=== PATIENT | female | born 1990 | race Caucasian/White ===

== ENCOUNTER 2016-12-07 17:21 | Outpatient (CLI) | payer MEDICAID ==
[~2016-12-07] VITALS: Ht 160 cm; Wt 86.5 kg
[~2016-12-07 17:21] MED LIST: ACET500C5 PO
[2016-12-07 17:54] VITALS: Ht 160 cm; Wt 86.5 kg
[2016-12-07 17:55] VITALS: BP 112/68; PULSE 77; RESP 18
[2016-12-07 19:17] LABS: ADD UMIC YES; UR ASCORBIC ACID NEGATIVE (NEGATIVE); UR BACTERIA FEW /HPF (NONE SEEN); UR BILIRUBIN (Dip) NEGATIVE (NEGATIVE); UR BLOOD (Dip) 3+ mg/dL (NEGATIVE); UR CLARITY CLEAR (CLEAR); UR COLOR RED (YELLOW); UR GLUCOSE (Dip) 1+ mg/dL (NEGATIVE); UR KETONES (Dip) NEGATIVE (NEGATIVE); UR LEUKOCYTE ESTERASE (Dip) TRACE Leu/ul (NEGATIVE); UR NITRITE (Dip) NEGATIVE (NEGATIVE); UR RBC 58 /HPF (0-5); UR SPECIFIC GRAVITY (Dip) 1.014 (1.003-1.030); UR SQUAMOUS EPITHELIAL CELL FEW /HPF (FEW); UR TOTAL PROTEIN (Dip) 2+ mg/dl (NEGATIVE); UR UROBILINOGEN (Dip) NEGATIVE (NEGATIVE)
--- NOTE | 2016-12-07 19:28 | RADRPT ---
AMENDMENT: 12/07/2016 7:28:36 PM Matt Quiroz Md The IMPRESSION should also state: Breech presentation. PROCEDURE: US OB biophysical profile. CLINICAL INDICATION: evaluation, contractions TECHNIQUE: Multiple sonographic images of the pelvis were obtained. The images were reviewed on a PACS workstation. COMPARISON: No prior studies are available for comparison. FINDINGS: The cervix is closed and measures 3.9 cm in length. There is a single viable intrauterine gestation. Cardiac activity is present with 132 beats per min toribio. There is a breech presentation. The placenta is fundal and left lateral in location. There is no evidence of placental abruption. There is a low amount of amniotic fluid with an BJ = 7.4 cm. Biophysical profile: movement 2/2 tone 2/2. breathing 2/2 BJ 2/2 Total 09/20 RPTAT: AA . IMPRESSION: Normal biophysical profile. Low BJ of 7.4 cm. The cervix is closed and measures 3.9 cm in length. Physician Eduardo Date Time Electronically viewed and signed by Physician Eduardo on 12/07/2016 19:28 /
--- NOTE | 2016-12-07 22:15 | TRIAGE ---
OB Triage Datetime Report Generated by CPN: 12/07/2016 22:15 Datetime: 12/07/2016 21:25 Stage of : OB Triage Datetime: 12/07/2016 21:01 Stage of : OB Triage Monitor Mode: External Duration (sec)2399: 10sec Quality: Mild Pattern: Normal: <= 5 Contractions in 10 Minutes Resting Tone [place]: Relaxed Heart Rate FHR Baseline Rate: 130 Monitor Mode: External US FHR Baseline Changes: No Baseline Change Variability: Moderate 6-25 bpm Accelerations: 15X15 Decelerations: None Category: Category I Datetime: 12/07/2016 20:01 Stage of : OB Triage Monitor Mode: External Resting Tone [place]: Relaxed Heart Rate FHR Baseline Rate: 140 Monitor Mode: External US Pain Assessment Pain Scale: 0 Pain Presence: None/Denies Pain Type: N/A Datetime: 12/07/2016 19:00 Stage of : OB Triage Maternal Assessment Level of Consciousness: Fully Conscious Labor Evaluation Frequency: 125 Monitor Mode: External Resting Tone [place]: Relaxed Heart Rate FHR Baseline Rate: 135 Monitor Mode: External US Variability: Moderate 6-25 bpm Accelerations: 15X15 Decelerations: None Category: Category I Pain Assessment Pain Scale: 0 Pain Goal: 3 Vaginal Exam Membrane Status: Intact Vaginal Bleeding: None Datetime: 12/07/2016 17:52 Assessment Type: Triage Maternal Assessment Level of Consciousness: Fully Conscious DTR's/Clonus: DTRs 2+; No Clonus Headache: Denies Blurred Vision: No Respiratory Effort: Unlabored; Regular Rhythm; Equal Expansion Breath Sounds, Left: Clear and Equal Breath Sounds, Right: Clear and Equal Nausea/Vomiting: Denies RUQ Epigastric Pain: Denies Lower Extremities Edema: Bilateral Lower Extremities Degree: 1+ Upper Extremities Edema: None Degree: None Facial Edema: None Fall Risk Assessment History of Falling: (0) No Secondary Diagnosis: (0) No Ambulatory Aid: (0) Bedrest/Nurse Assist IV Therapy: (0) No Gait: (0) Normal/Bedrest/Immobile Mental Status: (0) Oriented to Own Ability Fall Score: 0 Fall Risk Score Definition: No Risk: No action required Datetime: 12/07/2016 17:51 Time of Arrival: 12/07/2016 17:09 EGA: 34.2 Arrived By: Ambulatory Arrived From: Home Chief Complaint: PT HERE C/O UC'S Movement: Present Contractions: Irregular Rupture of Membranes: Denies Vaginal Bleeding: None Vaginal Discharge: Denies Recent Sexual Intercouse: Denies Abdominal Trauma: Not Applicable Patient Complaints: Contractions; Cramping Time Provider Notified: 12/07/2016 18:20 Provider Notified: SANIA Initial Plan: BPP/NST/CVL/UA Datetime: 12/07/2016 17:49 Monitor Mode: External Monitor Mode: External US
--- NOTE | 2016-12-07 23:13 | PN ---
Triage Information Date/Time 12/07/2016 Reason for visit: Weeks of Gestation 34 weeks and 2 days /Para Diabetes: none Hypertention: none Additional information 26 years old with IUP at 34 weeks and 2 days with complaint of lower back pain when moves to her sides. Denies any LOF, vaginal bleeding or decreased movement. Denies any contractions. Had some random contractions this morning that resolved. Reports was told during her office visits that has blood in her urine,. Denies any known history of kidney stone. Denies any similar pain in the past/ Objective Vital Signs Date Time Temp Pulse Resp B/P Pulse Ox O2 Delivery O2 Flow Rate FiO2 12/07/16 17:55 98.5 77 18 112/68 99 Room Air Heart Rate: 130's Contractions: None Exam GA : A*O, NAD abdomen: soft, Gravid. non tender Fundal Height consistent with GA No CVA tenderness Extremities: No calf tenderness, no click , no edema NST: Cat 1 No contractions on the monitor noted Results/Medications Results 24 hrs Laboratory Tests Test 12/07/16 17:30 Urine Color RED Urine Clarity CLEAR Urine pH 7.0 Urine Specific [place] 1.014 Urine Ketones NEGATIVE Urine Nitrite NEGATIVE Urine Bilirubin NEGATIVE Urine Urobilinogen NEGATIVE Urine Leukocyte Esterase TRACE A Urine Microscopic RBC 58 H Urine Microscopic WBC 1 Urine Squamous Epithelial Cells FEW Urine Bacteria FEW A Urine Hemoglobin 3+ H Urine Glucose 1+ H Urine Total Protein 2+ H Imaging Results Breech presentation. PROCEDURE: US OB biophysical profile. CLINICAL INDICATION: evaluation, contractions TECHNIQUE: Multiple sonographic images of the pelvis were obtained. The images were reviewed on a PACS workstation. COMPARISON: No prior studies are available for comparison. FINDINGS: The cervix is closed and measures 3.9 cm in length. There is a single viable intrauterine gestation. Cardiac activity is present with 132 beats per minute. There is a breech presentation. The placenta is fundal and left lateral in location. There is no evidence of placental abruption. There is a low amount of amniotic fluid with an BJ = 7.4 cm. Biophysical profile: movement 2/2 tone 2/2. breathing 2/2 BJ 2/2 Total 8/8 RPTAT: AA . IMPRESSION: Normal biophysical profile. Low BJ of 7.4 cm. The cervix is closed and measures 3.9 cm in nabil Disposition: Discharge Assessment/Plan IUP at 34 weeks and 2 days Low back pain, likely musculoskeleta Microcopic Hematuria, can not r/o nephrolithiasis No evidence of labor BJ borderline RTC tomorrow after adequate hydration for repeat ultrasound for BJ as well as renal ultrasound labor precaution and kick counts discussed ALEXEI LUTHER MD Dec 07, 2016 23:13
[2016-12-08] MEDS ORDERED: [UNRECOGNIZED DRUG - CODE] PO (19:42)
[2016-12-08] MEDS ORDERED: FERR325T5 PO (19:42)
== END 2016-12-07 21:49 | disposition home or self-care (01) ==
LOC: OBT 17:21 → L-D 17:22 → OBT 21:49
PROVIDERS: ATTEND Obstetrics & Gynecology
DX: O26.893 Other specified pregnancy related conditions, third trimester (principal); Z3A.34 34 weeks gestation of pregnancy; M54.5 Low back pain; R31.29 Other microscopic hematuria
CPT/HCPCS: 76817; 76818; 81001; Z7500; G0463

== ENCOUNTER 2016-12-08 19:26 | Outpatient (CLI) | payer MEDICAID ==
[~2016-12-08] VITALS: Ht 160 cm; Wt 86.7 kg
[2016-12-08 19:34] VITALS: BP 116/72; PULSE 86; RESP 18; Ht 160 cm; Wt 86.7 kg
[2016-12-08] MEDS ORDERED: [UNRECOGNIZED DRUG - CODE] PO (19:42)
[2016-12-08] MEDS ORDERED: FERR325T5 PO (19:42)
--- NOTE | 2016-12-08 20:17 | RADRPT ---
PROCEDURE: Obstetrical ultrasound for biophysical profile CLINICAL INDICATION: Biophysical profile. . TECHNIQUE: Obstetrical ultrasound of the uterus for biophysical profile. Transabdominal views are obtained. COMPARISON: 12/07/2016 FINDINGS: Single intrauterine gestation. Presentation: Breech Placenta: Fundal No evidence of placental abruption. No evidence of placenta previa. breathing movement = 2/2 tone = 2/2 motion = 2/2 BJ = 2/2 BJ = 9.2 cm heart rate: 152 beats per minute IMPRESSION: Single intrauterine gestation. Biophysical profile 09/20 BJ = 9.2 cm Presentation: Breech RPTAT: AADD .Gene Dunaway MD, MD Date Time Electronically viewed and signed by .Gene Dunaway MD, MD on 12/08/2016 20:16 .B/
--- NOTE | 2016-12-08 22:01 | TRIAGE ---
OB Triage Datetime Report Generated by CPN: 12/08/2016 22:00 Datetime: 12/08/2016 20:50 Stage of : OB Triage Frequency: X1 Monitor Mode: External Duration (sec)2399: 50 Quality: Mild Pattern: Normal: <= 5 Contractions in 10 Minutes Resting Tone [place]: Relaxed FHR Baseline Rate: 140 Monitor Mode: External US Variability: Moderate 6-25 bpm Accelerations: 15X15 Decelerations: None Category: Category I Pain Scale: 0 Pain Presence: None/Denies Pain Goal: 0 Datetime: 12/08/2016 19:42 Time of Arrival: 12/08/2016 19:15 EGA: 34.3 Arrived By: Ambulatory Arrived From: Home Chief Complaint: NST/BPP PER MD ORDERS Movement: Present Contractions: Denies/Absent Rupture of Membranes: Denies Vaginal Bleeding: None Vaginal Discharge: Denies Recent Sexual Intercouse: Denies Abdominal Trauma: Not Applicable Patient Complaints: Other Time Provider Notified: 12/08/2016 19:15 Provider Notified: HERB Initial Plan: VS, EFM, NST, BPP Datetime: 12/08/2016 19:40 Stage of : OB Triage Assessment Type: Triage Level of Consciousness: Fully Conscious DTR's/Clonus: DTRs 2+; No Clonus Headache: Denies Blurred Vision: No Respiratory Effort: Unlabored; Regular Rhythm; Equal Expansion Breath Sounds, Left: Clear and Equal Breath Sounds, Right: Clear and Equal Nausea/Vomiting: Denies RUQ Epigastric Pain: Denies Lower Extremities Edema: None Degree: None Upper Extremities Edema: None Degree: None Facial Edema: None Temperature Route: Oral History of Falling: (0) No Secondary Diagnosis: (0) No Ambulatory Aid: (0) Bedrest/Nurse Assist IV Therapy: (0) No Gait: (0) Normal/Bedrest/Immobile Mental Status: (0) Oriented to Own Ability Fall Score: 0 Fall Risk Score Definition: No Risk: No action required Monitor Mode: External Contraction Comments: No contractions at this time. FHR Baseline Rate: 135 Monitor Mode: External US Variability: Moderate 6-25 bpm Accelerations: 15X15 Decelerations: None Category: Category I Pain Scale: 0 Pain Presence: None/Denies Pain Type: N/A Pain Goal: 0 Pain Relief Measures: Comfort Measures Datetime: 12/07/2016 17:52 Fall Score: 0 Fall Risk Score Definition: No Risk: No action required Datetime: 12/07/2016 17:51 EGA: 34.2
--- NOTE | 2016-12-09 01:47 | PN ---
Triage Information Date/Time 12/09/16 Reason for visit: f/u LOW BJ 12/07/16 BJ 7.4 Weeks of Gestation 34w3d /Para primigravida Diabetes: none Hypertention: none Objective Vital Signs Date Time Temp Pulse Resp B/P Pulse Ox O2 Delivery O2 Flow Rate FiO2 12/08/16 19:34 98.2 86 18 116/72 Heart Rate: 130's Contractions: None Results/Medications Imaging Results BPP 8 BJ 9.2 BREECH Disposition: Discharge Assessment/Plan IUP 34w3d borderline oligohydramnios Plan discharge home RTH 3days for repeat BJ YECENIA ESTEVEZ MD Dec 09, 2016 01:47
== END 2016-12-08 21:29 | disposition home or self-care (01) ==
LOC: OBT 19:26 → L-D 19:27 → OBT 21:29
PROVIDERS: ATTEND Obstetrics & Gynecology
DX: O41.03X0 Oligohydramnios, third trimester, not applicable or unspecified (principal); Z3A.34 34 weeks gestation of pregnancy
CPT/HCPCS: 76818; Z7500; G0463

== ENCOUNTER 2016-12-11 13:32 | Outpatient (CLI) | payer MEDICAID ==
[~2016-12-11] VITALS: Ht 162.6 cm; Wt 86.3 kg
[~2016-12-11 13:32] MED LIST changes: -ACET500C5 PO; +FERR325T5 PO; +[UNRECOGNIZED DRUG - CODE] PO
[2016-12-11 13:43] VITALS: BP 118/66; PULSE 101; RESP 18
[2016-12-11 13:44] VITALS: Ht 162.6 cm; Wt 86.3 kg
--- NOTE | 2016-12-11 15:29 | RADRPT ---
PROCEDURE: OB ultrasound for biophysical profile CLINICAL INDICATION: Oligohydramnios TECHNIQUE: Multiple sonographic images of the pelvis were obtained. Transabdominal views of the g ravid uterus are available for review. The images were reviewed on a PACS workstation. COMPARISON: Biophysical profile dated 12/08/2016 FINDINGS: breathing movement = 2/2 tone = 2/2 motion = 2/2 BJ = 2/2 BJ = 8.0 cm Single live intrauterine with cardiac activity of 148 bpm. position is breech . The placenta is fundal. IMPRESSION: 1. Single live intrauterine gestation. 2. Biophysical profile = 09/20. 3. BJ = 8.0 cm. No significant interval change. 4. Breech presentation. RPTAT: HH .Rosemary Yo MD, Date Time Electronically viewed and signed by .Rosemary Yo MD, MD on 12/11/2016 15:28 .G/
[2016-12-11] MEDS ORDERED: LACTATED RINGER'S 1,000 ML IV ONE (16:00)
--- NOTE | 2016-12-11 19:21 | RADRPT ---
PROCEDURE: US OB. CLINICAL INDICATION: Low BJ , pain TECHNIQUE: Transabdominal views of the pelvis are available for review. COMPARISON: US PELVIS 12/11/2016; US PELVIS 12/08/2016 FINDINGS: There is a single intrauterine gestation in a breech position. The heart rate is noted at 140 bpm. The placenta is fundal. The BJ measures 8.7 cm. RPTAT: AA IMPRESSION: Normal BJ. .Matt Salazar MD, MD Date Time Electronically viewed and signed by .Matt Salazar MD, MD on 12/11/2016 19:21 .S/
--- NOTE | 2016-12-11 20:37 | PN ---
Triage Information Date/Time Reason for visit: Oligohydramnios Weeks of Gestation 34+ /Para 2/1 Diabetes: none Hypertention: none Objective Vital Signs Date Time Temp Pulse Resp B/P Pulse Ox O2 Delivery O2 Flow Rate FiO2 12/11/16 13:43 98.0 101 18 118/66 97 Room Air Heart Rate: 140's Contractions: None Disposition: Discharge Assessment/Plan landon is here for repeat BJ 8.8 NSt reassuring Discharged with precautions She needs to return in 2 days for NST BPP VIANEY BUI M.D. Dec 11, 2016 20:37
--- NOTE | 2016-12-11 21:01 | TRIAGE ---
OB Triage Datetime Report Generated by CPN: 12/11/2016 21:00 Datetime: 12/11/2016 20:28 Stage of : OB Triage Datetime: 12/11/2016 19:36 Stage of : OB Triage Temperature Route: Oral Monitor Mode: External Contraction Comments: NONE Heart Rate FHR Baseline Rate: 135 Monitor Mode: External US Variability: Moderate 6-25 bpm Accelerations: 15X15 Decelerations: None Category: Category I Pain Presence: None/Denies Datetime: 12/11/2016 19:18 Stage of : OB Triage Comments: TOCO AND EFM READJUSTED AFTER US DONE. Datetime: 12/11/2016 19:00 Stage of : OB Triage Maternal Assessment Level of Consciousness: Fully Conscious Labor Evaluation Frequency: NONE Monitor Mode: External Resting Tone [place]: Relaxed Heart Rate FHR Baseline Rate: 135 Monitor Mode: External US Variability: Moderate 6-25 bpm Accelerations: 15X15 Decelerations: None Pain Assessment Pain Scale: 0 Pain Goal: 3 Vaginal Exam Membrane Status: Intact Vaginal Bleeding: None Datetime: 12/11/2016 18:00 Stage of : OB Triage Maternal Assessment Level of Consciousness: Fully Conscious Labor Evaluation Frequency: NONE Monitor Mode: External Resting Tone [place]: Relaxed Heart Rate FHR Baseline Rate: 135 Monitor Mode: External US Variability: Moderate 6-25 bpm Accelerations: 15X15 Decelerations: None Pain Assessment Pain Scale: 0 Pain Goal: 3 Vaginal Exam Membrane Status: Intact Vaginal Bleeding: None Datetime: 12/11/2016 16:51 Stage of : OB Triage Maternal Assessment Level of Consciousness: Fully Conscious Labor Evaluation Frequency: NONE Monitor Mode: External Resting Tone [place]: Relaxed Heart Rate FHR Baseline Rate: 135 Monitor Mode: External US Variability: Moderate 6-25 bpm Accelerations: 15X15 Decelerations: None Pain Assessment Pain Scale: 0 Pain Goal: 3 Vaginal Exam Membrane Status: Intact Vaginal Bleeding: None Datetime: 12/11/2016 14:30 Stage of : OB Triage Maternal Assessment Level of Consciousness: Fully Conscious Labor Evaluation Frequency: NONE Monitor Mode: External Resting Tone [place]: Relaxed Heart Rate FHR Baseline Rate: 135 Monitor Mode: External US Variability: Moderate 6-25 bpm Accelerations: 15X15 Decelerations: None Category: Category I Pain Assessment Pain Scale: 0 Pain Goal: 3 Vaginal Exam Membrane Status: Intact Vaginal Bleeding: None Datetime: 12/11/2016 13:40 Assessment Type: Triage Maternal Assessment Level of Consciousness: Fully Conscious DTR's/Clonus: DTRs 2+; No Clonus Headache: Denies Blurred Vision: No Respiratory Effort: Unlabored; Regular Rhythm; Equal Expansion Breath Sounds, Left: Clear and Equal Breath Sounds, Right: Clear and Equal Nausea/Vomiting: Denies RUQ Epigastric Pain: Denies Lower Extremities Edema: None Degree: None Upper Extremities Edema: None Degree: None Facial Edema: None Fall Risk Assessment History of Falling: (0) No Secondary Diagnosis: (0) No Ambulatory Aid: (0) Bedrest/Nurse Assist IV Therapy: (0) No Gait: (0) Normal/Bedrest/Immobile Mental Status: (0) Oriented to Own Ability Fall Score: 0 Fall Risk Score Definition: No Risk: No action required Datetime: 12/11/2016 13:39 Time of Arrival: 12/11/2016 13:29 EGA: 34.6 Arrived By: Ambulatory Arrived From: Home Chief Complaint: PT HERE FOR NST/BPP FOR OLIGIO Movement: Present Contractions: Denies/Absent Rupture of Membranes: Denies Vaginal Bleeding: None Vaginal Discharge: Denies Recent Sexual Intercouse: Yes Abdominal Trauma: Not Applicable Patient Complaints: None Time Provider Notified: 12/11/2016 13:56 Provider Notified: SANIA Initial Plan: NST/BPP/IV HYDRATION Datetime: 12/11/2016 13:34 Monitor Mode: External Monitor Mode: External US Datetime: 12/08/2016 19:42 EGA: 34.3 Datetime: 12/08/2016 19:40 Fall Score: 0 Fall Risk Score Definition: No Risk: No action required Datetime: 12/07/2016 17:52 Fall Score: 0 Fall Risk Score Definition: No Risk: No action required Datetime: 12/07/2016 17:51 EGA: 34.2
== END 2016-12-11 20:45 | disposition home or self-care (01) ==
LOC: L-D 13:32 → OBT 13:32
PROVIDERS: ATTEND Obstetrics & Gynecology
DX: O41.03X0 Oligohydramnios, third trimester, not applicable or unspecified (principal); Z3A.34 34 weeks gestation of pregnancy
CPT/HCPCS: 36415; 76816; 76818; 96360; 96361; J7120; Z7500; G0463

== ENCOUNTER 2017-01-13 08:42 | Inpatient (IN) | payer MEDICAID ==
[~2017-01-13] VITALS: Ht 160 cm; Wt 92.5 kg
[~2017-01-13 08:42] MED LIST changes: +OXYTOCIN 30 UNITS/LR 500 ML BAG IV ONE
[2017-01-13 08:49] VITALS: Ht 160 cm; Wt 92.5 kg
--- NOTE | 2017-01-13 09:21 | RADRPT ---
PROCEDURE: Obstetrical ultrasound for biophysical profile CLINICAL INDICATION: Biophysical profile. . TECHNIQUE: Obstetrical ultrasound of the uterus for biophysical profile. Transabdominal views are obtained. COMPARISON: US 12/11/2016; US PELVIS 12/11/2016 FINDINGS: Single intrauterine gestation. Presentation: Breech Placenta: Fundal No evidence of placental abruption. No evidence of placenta previa. breathing movement = 2/2 tone = 2/2 motion = 2/2 BJ = 2/2 BJ = 7.8 cm heart rate: 142 beats per minute IMPRESSION: Single intrauterine gestation. Biophysical profile 09/20 RPTAT: AADD .Gene Dunaway MD, Date Time Electronically viewed and signed by .Gene Dunaway MD, on 01/13/2017 09:21 .B/
[2017-01-13] MEDS ORDERED: CEFAZOLIN 2 GM/50 ML (PMX) 50 ML IVPB ONE (11:03)
[2017-01-13] MEDS: LACTATED RINGER'S 1,000 ML IV SCH ×2 (11:55→13:48)
[2017-01-13] MEDS ORDERED: OXYTOCIN 30 UNITS/LR 500 ML IV PRN ×2 (12:00→19:00)
[2017-01-13] MEDS ORDERED: METHYLERGONOVINE 0.2 MG INJ IM PRN ×2 (12:00→19:00)
[2017-01-13] MEDS ORDERED: OXYTOCIN 30 UNITS/LR 500 ML IV SCH (12:00)
[2017-01-13] MEDS ORDERED: MISOPROSTOL 200 MCG TAB PR PRN ×2 (12:00→19:00)
[2017-01-13] MEDS ORDERED: CARBOPROST 250 MCG INJ IM PRN ×2 (12:00→19:00)
[2017-01-13 12:16] LABS: BASOPHILS % 0.1 % (0.0-2.0); EOSINOPHILS % 0.2 % (0.0-7.0); HEMOGLOBIN 11.1 g/dl (12.0-16.0); LYMPHOCYTES # 1.6 10^3/ul (0.8-2.9); LYMPHOCYTES % 16.3 % (15.0-51.0); MEAN CORPUSCULAR HEMOGLOBIN 29.1 pg (29.0-33.0); MEAN CORPUSCULAR HGB CONC 34.7 g/dl (32.0-37.0); MEAN CORPUSCULAR VOLUME 83.8 fl (82.0-101.0); MEAN PLATELET VOLUME 9.9 fl (7.4-10.4); MONOCYTES % 9.4 % (0.0-11.0); NEUTROPHIL # 7.4 10^3/ul (1.6-7.5); PLATELET COUNT 257 10^3/UL (140-415); RED BLOOD COUNT 3.82 10^6/ul (4.20-5.40); RED CELL DISTRIBUTION WIDTH 14.4 % (11.5-14.5); WHITE BLOOD COUNT 10.1 10^3/ul (4.8-10.8)
[2017-01-13 12:54] LABS: INR 0.97
[2017-01-13 12:55] LABS: PARTIAL THROMBOPLASTIN TIME 28.5 Sec (25.0-35.0)
[2017-01-13] MEDS ORDERED: OXYTOCIN 10 UNIT INJ ONE (14:42)
[2017-01-13] MEDS ORDERED: ONDANSETRON 4 MG INJ ONE (14:42)
[2017-01-13] MEDS ORDERED: morphine SULFATE/PF (10 MG/10 ML) INJ ONE (14:43)
[2017-01-13] MEDS: CEFAZOLIN 2 GM/50 ML (PMX) 50 ML IV SCH ×2 (14:45→15:25)
[2017-01-13] MEDS ORDERED: PHENYLephrine (100 MCG/ML) 5ML SYG ONE ×2 (14:51)
--- NOTE | 2017-01-13 15:35 | HP ---
Date/Time of Note Date/Time of Note DATE: 01/13/17 TIME: 14:54 OB - History Hx of Present Free Text/Dictation 25 years old female SAB 1 EDC January 16, [address] [facility] at 39 weeks and 4 days diagnosed with breech presentation confirmed with the ultrasound, operative delivery by discussed with the patient ,complication of the surgery including but not limited to bowel and bladder injury infection hemorrhage wound hematoma explained all her questions answered she would like to proceed with the operation Chief Complaint: 39 weeks 4 days breech presentation Estimated Due Date: Jan 16, 2017 : 2 Para: 0 Spontaneous : 1 Care: Good Care Ultrasounds: Normal mid trimester US Obstetrical Complications: None Medical Complications: None Past Family/Social History * Past Medical, Surgical, Family and Obstetric Histories reviewed from chart. Rubella: immune RPR/VDRL: Negative GBS Status: Negative HBsAG: Negative OB Admission Exam Physical Exam HEENT: WNL Heart: Rhythm Normal Lungs: Clear, Equal Abdomen: WNL Extremities: Normal Reflexes: Normal Cervical Dilatation: None Accelerations: Accelerations Present Varibility: Moderate Contractions on Admission: >10 Minutes Apart Intensity: Mild Last 72 hours Lab Results CBC & BMP 01/13/17 11:55 OB Assessment/Plan Reason for admission: other Other plan: 25 years old SAB 1 EDC January 16, 2017 admitted to the hospital diagnosed with breech presentation confirmed with the ultrasound indication for section was discussed with the patient all her questions answered complication of the surgery including but not limited to bowel and bladder injury infection hemorrhage wound hematoma explained to her she is willing to proceed with the operation JUANITO LUI MD Jan 13, 2017 15:35
--- NOTE | 2017-01-13 15:43 | OPR ---
Operative Report Planned Procedure Free Text/Dictation 25 years old SAB 1 diagnosed with breech presentation at 39 weeks and 4 days undergoing a primary complication of the surgery including but not limited to bowel bladder injury infection hemorrhage wound hematoma has been discussed with the patient, she would like to proceed with the operation Procedure date Jan 13, 2017 Procedure(s) Primary for breech presentation Performed by see signature line [employer] TRAY TERESA Anesthesiologist: AHMET BO MD Pre-procedure diagnosis 39 weeks 4 days breech presentation Anesthesia Type: spinal Post-Procedure Post-procedure diagnosis He 9 weeks 4 days breech presentation Findings Live Baby boy 8 and 9 Estimated Blood Loss: 500 - 600 mls Specimen(s) none Grafts/Implant(s) none Complication(s) none Pt Condition post procedure: stable Procedure Description Under satisfactory spinal anesthesia patient prepped and draped and placed in supine position. Pfannenstiel incision was made. Incision carried through the subcutaneous tissue. Fascia incised to the length of incision. Rectus muscle divided in midline. Peritoneum exposed and entered to a vertical incision. Exploration of abdomen revealed [gravid uterus at term normal-appearing tubes and ovaries.] Bladder flap was developed. Transverse incision was made in the lower segment of the uterus. Amniotic sac ruptured, [clear amniotic fluid noted. ] Live baby boy was delivered from monika breech presentation delivery performed by assisted breech extraction shoulders delivered without any difficulty head delivered with Mauriceau maneuver.Naso oropharyngeal suction was performed. Baby handed to the team for immediate attention. Patient received 20 units of Pitocin. Placenta delivered manually intact. Uterine cavity cleaned with a wet sponge and drainage established. Uterus closed in 2 layers using Monocryl #1 in continuous fashion. Peritoneal cavity irrigated with warm saline. Sponge needle instrument reported to be correct. Abdominal peritoneum closed with 2-0 chromic catgut continuously. Fascia closed with #1 PDS in a continuous fashion. Subcutaneous tissue irrigated with warm saline and approximated with 2-0 chromic catgut skin closed with hubert. Estimated blood loss [600]. Urine bag containing [200] mL of [clear] urine. Patient tolerated procedure well and transferred to recovery room in good condition. JUANITO LUI MD Jan 13, 2017 15:43
--- NOTE | 2017-01-13 16:05 | TRIAGE ---
OB Triage Datetime Report Generated by CPN: 01/13/2017 16:05 Datetime: 01/13/2017 13:30 Stage of : Labor Maternal Assessment Level of Consciousness: Fully Conscious Headache: Denies Nausea/Vomiting: Denies Labor Evaluation Frequency: x4 Monitor Mode: External Duration (sec)2399: 50 Quality: Mild Resting Tone Bovey: Relaxed Heart Rate FHR Baseline Rate: 120 Monitor Mode: External US Variability: Moderate 6-25 bpm Accelerations: 15X15 Decelerations: None Category: Category I Pain Assessment Pain Scale: 2 Pain Presence: Intermittent Pain Type: Cramping Pain Location: Abdomen Pain Goal: 2 Vaginal Exam Membrane Status: Intact Datetime: 01/13/2017 12:30 Stage of : Labor Maternal Assessment Level of Consciousness: Fully Conscious Headache: Denies Nausea/Vomiting: Denies Labor Evaluation Frequency: IRREG Monitor Mode: External Quality: Mild Heart Rate FHR Baseline Rate: 130 Monitor Mode: External US Variability: Moderate 6-25 bpm Accelerations: 15X15 Decelerations: None Category: Category I Pain Assessment Pain Scale: 2 Pain Presence: Intermittent Pain Type: Cramping Pain Location: Abdomen Pain Goal: 2 Vaginal Exam Membrane Status: Intact Datetime: 01/13/2017 11:28 Stage of : Labor Assessment Type: Admission Assessment Vaginal Bleeding: None Maternal Assessment Level of Consciousness: Fully Conscious DTR's/Clonus: DTRs 2+; No Clonus Headache: Denies Blurred Vision: No Respiratory Effort: Unlabored; Regular Rhythm; Equal Expansion Breath Sounds, Left: Clear and Equal Breath Sounds, Right: Clear and Equal Nausea/Vomiting: Denies RUQ Epigastric Pain: Denies Lower Extremities Edema: Bilateral Lower Extremities Degree: 2+ Facial Edema: None Fall Risk Assessment History of Falling: (0) No Secondary Diagnosis: (0) No Ambulatory Aid: (0) Bedrest/Nurse Assist IV Therapy: (0) No Gait: (0) Normal/Bedrest/Immobile Mental Status: (0) Oriented to Own Ability Fall Score: 0 Fall Risk Score Definition: No Risk: No action required Labor Evaluation Frequency: IRREG (Annotations: TOCO REPLACED) Heart Rate FHR Baseline Rate: 130 Variability: Moderate 6-25 bpm Accelerations: 15X15 Decelerations: None Category: Category I Pain Assessment Pain Scale: 2 Pain Presence: Intermittent Pain Type: Cramping Pain Location: Abdomen Pain Goal: 2 Vaginal Exam Membrane Status: Intact Datetime: 01/13/2017 10:15 Monitor Mode: External Resting Tone Bovey: Relaxed Heart Rate FHR Baseline Rate: 135 Monitor Mode: External US FHR Baseline Changes: No Baseline Change Variability: Moderate 6-25 bpm Accelerations: 15X15 Decelerations: None Category: Category I Pain Presence: None/Denies Datetime: 01/13/2017 09:16 Monitor Mode: External Resting Tone Bovey: Relaxed Heart Rate FHR Baseline Rate: 125 Monitor Mode: External US FHR Baseline Changes: No Baseline Change Variability: Moderate 6-25 bpm Accelerations: 15X15 Decelerations: None Category: Category I Pain Presence: None/Denies Datetime: 01/13/2017 09:15 Time of Arrival: 01/13/2017 08:35 EGA: 39.4 Arrived By: Ambulatory Arrived From: Office Chief Complaint: from clinic to R/O Breech Movement: Present Contractions: Denies/Absent Rupture of Membranes: Denies Vaginal Discharge: Denies Recent Sexual Intercouse: Denies Abdominal Trauma: Not Applicable Patient Complaints: None Time Provider Notified: 01/13/2017 09:40 Provider Notified: [facility] Initial Plan: BPP/Bhavana, position Datetime: 01/13/2017 09:00 Assessment Type: Triage Maternal Assessment Level of Consciousness: Fully Conscious DTR's/Clonus: DTRs 2+; No Clonus Headache: Denies Blurred Vision: No Respiratory Effort: Unlabored; Regular Rhythm; Equal Expansion Breath Sounds, Left: Clear and Equal Breath Sounds, Right: Clear and Equal Nausea/Vomiting: Denies RUQ Epigastric Pain: Denies Lower Extremities Edema: Bilateral Lower Extremities Degree: 1+ Upper Extremities Edema: None Degree: None Facial Edema: None Fall Risk Assessment History of Falling: (0) No Secondary Diagnosis: (0) No Ambulatory Aid: (0) Bedrest/Nurse Assist IV Therapy: (0) No Gait: (0) Normal/Bedrest/Immobile Mental Status: (0) Oriented to Own Ability Fall Score: 0 Fall Risk Score Definition: No Risk: No action required Datetime: 01/13/2017 08:45 Monitor Mode: External US Datetime: 12/11/2016 20:20 Stage of : OB Triage Labor Evaluation Frequency: NONE Monitor Mode: External Heart Rate FHR Baseline Rate: 135 Monitor Mode: External US Variability: Moderate 6-25 bpm Accelerations: 15X15 Decelerations: None Category: Category I Pain Presence: None/Denies Datetime: 12/11/2016 13:40 Fall Score: 0 Fall Risk Score Definition: No Risk: No action required Datetime: 12/11/2016 13:39 EGA: 34.6 Datetime: 12/08/2016 19:42 EGA: 34.3 Datetime: 12/08/2016 19:40 Fall Score: 0 Fall Risk Score Definition: No Risk: No action required Datetime: 12/07/2016 17:52 Fall Score: 0 Fall Risk Score Definition: No Risk: No action required Datetime: 12/07/2016 17:51 EGA: 34.2 Membranes Rupture Method: Artificial Presentation 'A': Breech
[2017-01-13] MEDS ORDERED: ONDANSETRON 4 MG INJ IV PRN (18:00)
[2017-01-13] MEDS ORDERED: NALOXONE (0.4 MG/ML) INJ IV PRN (18:00)
[2017-01-13] MEDS ORDERED: morphine 2 MG INJ IV PRN (18:00)
[2017-01-13] MEDS ORDERED: KETOROLAC 30 MG INJ IV PRN (18:00)
[2017-01-13] MEDS ORDERED: DIPHENHYDRAMINE 50 MG INJ IV PRN (18:00)
[2017-01-13 18:20] VITALS: BP 117/88; PULSE 70; RESP 19
[2017-01-13 18:35] VITALS: BP 116/74; PULSE 74; RESP 19
[2017-01-13] MEDS ORDERED: LANOLIN 7 GM TUBE TOP PRN (19:00)
[2017-01-13] MEDS ORDERED: OXYCODONE/ACETAMINOPHEN (5/325) TAB PO PRN (19:00)
[2017-01-13] MEDS ORDERED: CEFAZOLIN 1 GM/50 ML (PMX) 50 ML IVPB SCH (19:00)
[2017-01-13] MEDS ORDERED: HYDROCODONE/APAP (5/325) TAB PO PRN ×2 (19:00)
[2017-01-13 20:15] VITALS: BP 107/75; PULSE 80; RESP 18
[2017-01-13] MEDS: OXYTOCIN 30 UNITS/LR 500 ML IV SCH (20:28)
[2017-01-14] MEDS: OXYTOCIN 30 UNITS/LR 500 ML IV SCH ×3 (00:21→07:00)
[2017-01-14 00:30] VITALS: BP 111/86; PULSE 83; RESP 18
[2017-01-14 03:35] VITALS: BP 118/71; PULSE 90; RESP 18
[2017-01-14] MEDS: LACTATED RINGER'S 1,000 ML IV SCH (04:46)
[2017-01-14 08:00] VITALS: BP 102/60; PULSE 97; RESP 18
[2017-01-14 09:09] LABS: BASOPHILS % 0.2 % (0.0-2.0); EOSINOPHILS % 0.2 % (0.0-7.0); HEMATOCRIT 27.8 % (37.0-47.0); HEMOGLOBIN 9.5 g/dl (12.0-16.0); LYMPHOCYTES # 1.1 10^3/ul (0.8-2.9); LYMPHOCYTES % 11.3 % (15.0-51.0); MEAN CORPUSCULAR HEMOGLOBIN 28.9 pg (29.0-33.0); MEAN CORPUSCULAR HGB CONC 34.2 g/dl (32.0-37.0); MEAN CORPUSCULAR VOLUME 84.5 fl (82.0-101.0); MEAN PLATELET VOLUME 9.9 fl (7.4-10.4); MONOCYTE # 0.9 10^3/ul (0.3-0.9); MONOCYTES % 9.1 % (0.0-11.0); NEUTROPHIL # 7.5 10^3/ul (1.6-7.5); NEUTROPHILS % 78.7 % (39.0-77.0); PLATELET COUNT 209 10^3/UL (140-415); RED BLOOD COUNT 3.29 10^6/ul (4.20-5.40); RED CELL DISTRIBUTION WIDTH 13.8 % (11.5-14.5); WHITE BLOOD COUNT 9.6 10^3/ul (4.8-10.8)
[2017-01-14] MEDS: SENNA/DOCUSATE NA (8.6MG/50MG) TAB PO SCH ×2 (09:45→21:23)
[2017-01-14] MEDS ORDERED: LACTATED RINGER'S 1,000 ML IV SCH (10:00)
--- NOTE | 2017-01-14 10:44 | QN ---
Documentation Comment Post day 1 Afebrile Vital signs are stable Abdomen soft incision dry,, bowel sounds present lochia moderate,, extremities normal ambulation encouraged, JUANITO LUI MD Jan 14, 2017 10:44
[2017-01-14 12:00] VITALS: BP 100/72; PULSE 86; RESP 18
[2017-01-14 16:00] VITALS: BP 105/66; PULSE 82; RESP 17; RESP 18
[2017-01-14] MEDS: IBUPROFEN 600 MG TAB PO SCH (17:42)
[2017-01-14] MEDS: OXYCODONE/ACETAMINOPHEN (5/325) TAB PO PRN (18:15)
[2017-01-14] MEDS ORDERED: INFLUENZA VIRUS VACCINE 0.5 ML SYG IM* ONE (20:00)
[2017-01-14 20:10] VITALS: BP 122/71; PULSE 93; RESP 18
[2017-01-15] MEDS: IBUPROFEN 600 MG TAB PO SCH ×4 (00:18→17:41)
[2017-01-15 04:00] VITALS: BP 115/68; PULSE 81; RESP 18
[2017-01-15 08:00] VITALS: BP 118/69; PULSE 70; RESP 22
[2017-01-15] MEDS: SENNA/DOCUSATE NA (8.6MG/50MG) TAB PO SCH ×2 (09:16→21:37)
--- NOTE | 2017-01-15 12:41 | QN ---
Documentation Comment Post day 2 Afebrile Vital signs are stable Abdomen soft. Incision dry. Bowel sounds present she had bowel movement. Extremities normal. Plan of a.m. discharge discussed JUANITO LUI MD Jan 15, 2017 12:41
[2017-01-15] MEDS: OXYCODONE/ACETAMINOPHEN (5/325) TAB PO PRN (13:36)
[2017-01-15 15:00] VITALS: BP 132/42; PULSE 75; RESP 18
[2017-01-15 20:00] VITALS: BP 110/60; PULSE 83; RESP 20
[2017-01-16] MEDS: IBUPROFEN 600 MG TAB PO SCH ×3 (00:27→12:04)
[2017-01-16 04:00] VITALS: BP 107/63; PULSE 80; RESP 20
[2017-01-16 08:00] VITALS: BP 114/73; PULSE 83; RESP 16
[2017-01-16] MEDS ORDERED: DIPHTH/TET/ACEL PERTUSS (ADULT) 0.5 ML VIAL IM* ONE (09:00)
--- NOTE | 2017-01-16 09:51 | PD.PPDC ---
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
--- NOTE | 2017-01-16 09:54 | DS ---
Date/Time of Note Date/Time of Note DATE: 01/16/17 TIME: 09:52 Discharge Summary Admission/Discharge Info Admit Date/Time Jan 13, 2017 at 11:19 Discharge Date/Time January 16, 2017 at 9:50 AM Discharge Diagnosis Post primary day 3 Patient Condition: Good Procedures Primary for breech presentation Hx of Present Illness Term breech presentation Hospital Course Satisfactory uneventful Home Meds Reported Medications Vit No.129/Iron/FA ( One Daily Tablet) 1 Each Tablet, PO, TAB 12/08/16 Ferrous Sulfate (Ferrous Sulfate) 325 Mg Tablet.dr, 325 MG PO 12/08/16 Follow-up Plan Post instruction given recommended to make appointment to be seen at the clinic in 1 week Primary Care Provider Care Physician No Primary Time spent on discharge: < 30 minutes JUANITO LUI MD Jan 16, 2017 09:54
[2017-01-16] MEDS: SENNA/DOCUSATE NA (8.6MG/50MG) TAB PO SCH (10:21)
== END 2017-01-16 14:15 | disposition home or self-care (01) | DRG 766 ==
LOC: OBT 08:42 → L-D 08:44 → OBT 09:50 → L-D 11:19 → PP1 18:29
PROVIDERS: ADMIT Obstetrics & Gynecology; ATTEND Obstetrics & Gynecology
PROC: 10D00Z1 Extraction of Products of Conception, Low, Open Approach (ICD-10-PCS; principal; 2017-01-13 15:00)
DX: O32.1XX0 Maternal care for breech presentation, not applicable or unspecified (principal); Z37.0 Single live birth; Z3A.39 39 weeks gestation of pregnancy
CPT/HCPCS: 76818; 85025; 85610; 85730; 86592; 86850; 86900; 86901; 90686; 90715; 94760; G0463; J0690; J1885; J2274; J2370; J2405; J2590; J7120